=== PATIENT | male | born 1960 | race African-American/Black ===

== ENCOUNTER 2021-07-09 10:10 | Emergency (ER) | payer OTHER ==
[~2021-07-09] VITALS: Ht 160 cm; Wt 61.0 kg
[~2021-07-09 10:10] MED LIST: ALPHAGAN5 ML OD; BETIMOL0.5 % OD; BISACODYL5 MG PO; CYANOCOBALAM1000 MCG IM; DOCUSATE SOD100 M1 PO; DOCUSATE SOD100 MG PO; FERROUS FUM324 MG PO; MAG-AL PLU1 OR; MAG-AL PLUS PO; PRILOSEC20 MG PO; PROMETHAZINE HC25 MG PO; RESTASIS0.05 % OU; TRUSOPT 2% OD
[2021-07-09 10:19] VITALS: BP 141/77
[2021-07-09 10:30] VITALS: BP 136/81
[2021-07-09 10:56] LABS: HEMATOCRIT 40.4 % (39.0-50.0); HEMOGLOBIN 11.8 g/dl (14.0-18.0); IMMATURE GRANULOCYTES 0.2 % (0.0-5.0); MEAN CELL VOLUME 76.8 fL CALC (80.0-100.0); MEAN CORPUSCULAR HGB 22.4 pG CALC (26.0-32.0); MEAN CORPUSCULAR HGB CONC 29.2 g/dL CAL (32.0-36.0); NEUT# 2.55 thou/uL (1.82-7.42); RED BLOOD COUNT 5.26 mill/uL (4.70-6.10); RED CELL DISTRI WIDTH 15.1 % (11.5-15.5)
[2021-07-09 11:17] LABS: ALBUMIN 3.4 g/dL (3.2-5.0); ALKALINE PHOSPHATASE 85 u/l (38-126); ANION GAP 10 (6-22 (CALC)); BUN 19 mg/dL (8-23); BUN/CREATININE RATIO 18 (12-20 (CALC)); CARBON DIOXIDE 24 mmol/l (22-30); CHLORIDE 111 mmol/l (95-108); CREATININE 1.1 mg/dL (0.7-1.3); GFR > 60 ML/MIN (>=60 (CALC)); GFR FOR AFR.AMER. > 60 ML/MIN (>=60 (CALC)); LIPASE 66 u/l (23-300); POTASSIUM 4.3 mmol/l (3.5-5.1); SGOT/AST 28 u/l (19-48); SODIUM 141 mmol/l (137-146); TOTAL PROTEIN 6.5 g/dL (6.3-8.2)
[2021-07-09 11:18] LABS: ACT PARTIAL THROMBO TIME 27.3 SECONDS (20.0-32.5); PROTHROMBIN TIME 10.3 SECONDS (9.0-12.5)
[2021-07-09 11:19] LABS: BILIRUBIN, TOTAL 0.1 mg/dL (0.0-1.4)
[2021-07-09 12:14] VITALS: BP 102/58
[2021-07-09 12:31] VITALS: BP 107/61
== END 2021-07-09 12:45 | disposition short-term general hospital (02) | DRG 379 ==
LOC: ED 10:10
DX: K31.811 Angiodysplasia of stomach and duodenum with bleeding (principal); Z90.3 Acquired absence of stomach [part of]
CPT/HCPCS: J2354; S0164

== ENCOUNTER 2022-09-12 07:49 | Day surgery (SDC) | payer OTHER ==
[~2022-09-12] VITALS: Ht 160 cm; Wt 62.6 kg
[~2022-09-12 07:49] MED LIST changes: +BETIMOL0.5 %; +DORZOLAMIDE HCL2 %; +MIRALAX17 GM PO
[2022-09-12] MEDS ORDERED: [UNRECOGNIZED DRUG - OTHER] PO (08:18)
[2022-09-12 11:40] VITALS: BP 113/69
== END 2022-09-12 11:31 | disposition home or self-care (01) | DRG 812 ==
LOC: ENDO 07:49
PROVIDERS: ATTEND Surgery
PROC: 0DJD8ZZ Inspection of Lower Intestinal Tract, Via Natural or Artificial Opening Endoscopic (ICD-10-PCS; principal; 2022-09-12)
DX: D64.9 Anemia, unspecified (principal); K64.8 Other hemorrhoids; K31.819 Angiodysplasia of stomach and duodenum without bleeding